=== PATIENT | male | born 1945 | race Caucasian/White ===

== ENCOUNTER 2023-05-15 06:33 | Inpatient (IN) | payer MEDICARE, SELFPAY ==
[2023-05-09 08:17] VITALS: BMI 27.4
[2023-05-15] VITALS (16 sets, daily range): BP systolic 98–139; BP diastolic 54–84; PULSE 90–112; RESP 10–21; TEMP 36.3–37; O2SAT 92–100; BMI 27.4; BMI 26.6
--- NOTE | 2023-05-15 | DI.RAD.S_ITS ---
PROCEDURE: XR LUMBAR SPINE 2-3V INDICATIONS: TLIF L4-5 TECHNIQUE: AP and lateral view of the lumbar spine. COMPARISON: [facility] [place], XR LUMBAR SPINE 2 OR 3 VIEWS, 03/27/2023, 10:20. FINDINGS: Bones: Limited evaluation of the lower lumbar spine. Postsurgical changes from L4-5 posterior spinal fusion and discectomy. The hardware appears intact and in appropriate position. IMPRESSION: Limited views of the lower lumbar spine demonstrate L4-5 posterior spinal fusion and discectomy hardware in expected position. Dictated by: Duane Olvera M.D. on 05/15/2023 at 12:29 Approved by: Duane Olvera M.D. on 05/15/2023 at 12:32
[2023-05-15] MEDS: LACTATED RINGERS 1,000 ML 42 ML IV ×2 (07:56→10:14)
[2023-05-15] MEDS: GABAPENTIN 300 MG CAPSULE PO (08:11)
[2023-05-15] MEDS: ACETAMINOPHEN 325 MG TABLET 975 MG PO (08:11)
--- NOTE | 2023-05-15 08:22 | SUR.OPER ---
Prone on spine table, head in foam head support, padded chest and pelvic supports, gel pad at knees, lower legs supported by pillows; nipples, genitalia and toes free of pressure, arms secured on foam padded arm boards at <90 degrees abduction. Tape over blanket at thigh secured to table.
--- NOTE | 2023-05-15 08:42 | PM.PREOP ---
Pre-operative Note COVID-19 Criteria for continued procedure: Expected advancement of disease process, Possibility delay results in more complex future surgery or treatment, Increased loss of function, Continuing or worsening of significant or severe pain, Deterioration of the patient's condition or overall health and Delay expected to result in less-positive ultimate med/surg outcome Interval Note History & Physical reviewed/Exam performed by Physician: Yes Changes to H&P: No
[2023-05-15] MEDS: CEFAZOLIN 2 GM/100 ML PREMIX 100 ML IV ×2 (09:10→17:39)
[2023-05-15] MEDS: BUPIVACAINE LIPOSOME 266 MG/20 ML VIAL INJ (09:37)
[2023-05-15] MEDS: BUPIVACAINE 0.25% (PF) 60 ML, EPINEPHrine 0.15 MG INJ (09:38)
--- NOTE | 2023-05-15 11:21 | PM.OP.1 ---
Operative Date/Time/Diagnoses Date of procedure: 05/15/23 Time of procedure: 08:55 Pre-op diagnosis: 1. L4-5 spondylolisthesis 2. L4-5 spinal stenosis with neurogenic claudication Post-op diagnosis: same Procedure & Clinicians Procedure: 1. L4-5 Postero-lateral and posterior interbody fusion 2. L4-5 interbody cage placement. 3. L4-5 decompressive laminectomy with bilateral facetecomies 4. L4-5 Posterior non-segmental instrumentation 5. [place] of bone marrow from iliac crest 6. Utilization of microsurgical technique and operating microscope Same procedure as scheduled: Yes Indications: Patient has been having chronic back pain and worsening lumbar radiculopathy and symptoms of neurogenic claudication. Patient failed multiple conservative management with worsening pain weakness and numbness in his lower extremity. Patient has been having difficulty performing activity of daily living. After discussing risks benefits of treatment options, patient elected proceed with surgery. Surgeon: Abimael Romo Family Services Worker: Emerald Mcadams Click Yes if Unassisted: No Anesthesia Type: General Operative Notes Closure Type: primary Specimen(s): none sent Prosthetic devices, grafts, tissues, transplants, or devices: Globus revolve screws, Rise cage Estimated Blood Loss (mL): 50 Procedure in detail: Patient was seen in the preoperative area. Risks and benefits of the surgery was discussed with the patient. Informed consent was obtained from the patient and placed in the chart. Surgical site was marked. Patient was taken to the operative room. General anesthesia was administered. Prophylactic antibiotic was given to the patient less than 30 min before the incision was made. Patient was placed into a prone position on the Surendra table. Patient's back was then prepped and draped in the sterile fashion. Time-out was performed at this time. Using AP and lateral C-arm imaging the interval between L4-5 was identified and marked on patient's back. A 2 inch incision 2 in from midline was made on the left side first. The fascia was incised in line with skin incision. Globus MARS retractors was placed inside the incision and docked onto the L4 lamina. Using microsurgical technique and operating microscope, a L4 laminectomy and L4-5 facetectomy was performed using a Kerrison rongeur. The laminectomy and facetectomy was performed in order to decompress patient's cauda equina as well as the nerve roots exiting at the L4-5 level. The disc space at L4-5 was identified. And a total diskectomy was performed at L4-5 level. The endplates were decorticated using a rasp and shaver. The total diskectomy and decortication was performed at L4-5 level in order to to accomplish a L4-5 fusion. The local bone from the laminectomy and facetectomy was saved for local bone grafting. After the total diskectomy and decortication was completed, Trifecta bone graft material was combined with local bone that was harvested earlier. At this time, a separate skin is incision was made over the iliac crest. A Jamshidi needle was inserted into the iliac crest through a separate skin incision. 5 cc of bone marrow aspiration was obtained through the separate skin incision using a Jamshidi needle from the iliac crest. The bone marrow aspiration was combined with local bone and the Trifecta bone grafting material. The bone grafting material was placed into the L4-5 interbody space along with a expandable cage. The cage was expanded to its maximum height using the torque limiting screwdriver. At this time a mirror image incision was made on the right side. The fascia was incised in line with the skin incision. Globus MARS retractor was inserted and docked onto the L4-5 posterolateral gutter. Using the power drill, posterior-lateral decortication was performed at L4-5 level until bleeding cortical bone was identified. The remaining bone grafting material was placed into the L4-5 posterior lateral gutter he order to accomplish posterolateral fusion at the L4-5 level. Using the double C-arm technique, pedicle screws were placed into the L4-5 pedicles bilaterally. This was done by placing the Jamshidi needle into the pedicles, then placing the guidewires over the Jamshidi needle, and finally placing the cannulated screws over the guidewires bilaterally. After the pedicle screws were placed, 2 titanium rods was locked into the heads of the pedicle screws using locking caps and torque limiting screwdriver. Threaded reducers were used to reduce the patient's spondylolisthesis and maintained using the locking caps bilaterally. After all the hardware was placed, and confirmed with AP and lateral C-arm imaging, the wound was then irrigated with sterile normal saline and packed with Ray-Maryam gauze for 3 min to accomplish hemostasis. After the gauze was removed the deep fascia was closed with #1 Vicryl suture. The subcutaneous layer was closed with 2-0 Vicryl. The skin was closed with skin billy. The Operation could not have been safely performed without compromising the technical result or length of the procedure, without the assistance of a skilled ophthalmology surgical technician. The ophthalmology surgical technician was medically necessary for proper positioning, retraction and manipulation of instruments, proper exposure, surgical preparation, and manipulation of tissue. Patient tolerated the procedure well. There were no complications. Complications: none Post-operative Condition: stable Disposition: PACU Plan for aftercare: Admit to inpatient hospital
--- NOTE | 2023-05-15 11:58 | SUR.PHASEI ---
VVO oxycodone 5mg ordered per Dr. Willoughby.
--- NOTE | 2023-05-15 12:03 | SUR.PHASEI ---
Report called to Ortega.
[2023-05-15] MEDS: OXYCODONE IR 5 MG TABLET PO (12:08)
--- NOTE | 2023-05-15 12:11 | SUR.PHASEI ---
Patient transferred to the floor by Ermias with his belongings bag.
[2023-05-15] MEDS: LACTATED RINGERS 1,000 ML 125 ML IV ×2 (12:50→20:47)
[2023-05-15] MEDS: OXYCODONE IR 10 MG TABLET PO ×2 (14:08→20:47)
[2023-05-15] MEDS: GABAPENTIN 100 MG CAPSULE PO (20:47)
[2023-05-15] MEDS: DOCUSATE 100 MG CAPSULE PO (20:47)
[2023-05-15] MEDS: TAMSULOSIN 0.4 MG CAPSULE PO (20:47)
[2023-05-15] MEDS: SENNOSIDES 8.6 MG TABLET 17.2 MG PO (20:47)
[2023-05-16] MEDS: CEFAZOLIN 2 GM/100 ML PREMIX 100 ML IV (01:40)
[2023-05-16] MEDS: ACETAMINOPHEN 325 MG TABLET 650 MG PO (02:04)
[2023-05-16] MEDS: OXYCODONE IR 10 MG TABLET PO ×4 (02:04→13:52)
[2023-05-16] MEDS: hydrOXYzine pamoate 25 MG CAPSULE PO ×2 (02:04→06:20)
[2023-05-16] MEDS: HYDROMORPHONE 0.5 MG INJ IV ×2 (02:05→06:20)
[2023-05-16 04:40] VITALS: BP 107/57; PULSE 56; RESP 18; TEMP 36.7; O2SAT 99
--- NOTE | 2023-05-16 07:15 | P.DS_ITS ---
History of Present Illness History of Present Illness Date Patient Seen: 05/16/23 Time Patient Seen: 07:16 Chief complaint: TLIF Narrative: Operative Date/Time/Diagnoses Date of procedure: 05/15/23 Time of procedure: 08:55 Pre-op diagnosis: 1. L4-5 spondylolisthesis 2. L4-5 spinal stenosis with neurogenic claudication Post-op diagnosis: same Procedure & Clinicians Procedure: 1. L4-5 Postero-lateral and posterior interbody fusion 2. L4-5 interbody cage placement. 3. L4-5 decompressive laminectomy with bilateral facetecomies 4. L4-5 Posterior non-segmental instrumentation 5. [place] of bone marrow from iliac crest 6. Utilization of microsurgical technique and operating microscope Same procedure as scheduled: Yes Indications: ?Patient has been having chronic back pain and worsening lumbar radiculopathy and symptoms of neurogenic claudication. Patient failed multiple conservative management with worsening pain weakness and numbness in his lower extremity.? Patient has been having difficulty performing activity of daily living.? After discussing risks benefits of treatment options, patient elected proceed with surgery. Surgeon: Abimael Romo Community Service Representative: Emerald Mcadams Click Yes if Unassisted: No Anesthesia Type: General Operative Notes Closure Type: primary Specimen(s): none sent Prosthetic devices, grafts, tissues, transplants, or devices: Globus revolve screws, Rise cage Estimated Blood Loss (mL): 50 Discharge Providers Provider Date of admission: 05/15/23 06:33 Discharge Date: 05/16/23 Consults: 05/15/23 12:14 Consult to Occupational Therapy Evaluate & Treat Comment: Physician Instructions: Evaluate and treat Consult to Physical Therapy Evaluate & Treat Comment: Physician Instructions: Evaluate and Treat Discharge provider: Emerald Mcadams PA-C Summary Hospital Course Discharge Diagnosis: L4-5 spondylolisthesis, L4-5 spinal stenosis with neurogenic claudication; s/p lumbar fusion Hospital Course: Mr White's hospital course was unremarkable. On the morning of POD# 1, he was feeling well. He was eating and voiding without difficulty and wanted to go home if he was able to pass PT. He c/o low back pain and denied leg pain; his pain was well-controlled with oral medication. Exam Vital Signs (past 8 hours): - 05/16/23 04:40 Temperature 98.0 F Pulse Rate 56 L Respiratory Rate 18 Blood Pressure 107/57 L Pulse Oximetry 99 Oxygen Flow Rate 0 Oxygen Delivery Method Room Air Oxygen Flow Rate 0 Narrative Exam Narrative: 03/01 strength in hip flexors, quadriceps, hamstrings, DF, PF, EHL in bilateral lower extremities. Sensation to light touch intact throughout BLE. Calves soft, compressible, nontender and without palpable cords or masses. Dressing placed intraoperatively is CDI. [facility] Medical History (Updated 05/09/23 @ 09:21 by Cleine Weller RN) Diabetes (~2020) HLD (hyperlipidemia) HTN (hypertension) Peripheral neuropathy Prostate cancer (~2017) PTSD (post-traumatic stress disorder) Sciatica Skin cancer Spinal stenosis of lumbar region Surgical History (Updated 05/16/23 @ 07:25 by Emerald Mcadams PA-C) Hx of bilateral cataract extraction Hx of colonoscopy with polypectomy (~03/2023) Hx of knee surgery Social History household members: spouse Smoking Status: Never smoker alcohol intake: current Discharge Assessment & Plan Assessment and Plan Assessment: L4-5 spondylolisthesis, L4-5 spinal stenosis with neurogenic claudication; s/p lumbar fusion Plan of Treatment: Discharge home after PT if PT goals met. Multimodal pain control, f/u in office in 2 weeks as scheduled. Discharge Plan Discharge Plan Patient Disposition: Home Discharge orders & Medications Prescriptions: New oxycodone 5 mg tablet 5 mg PO Q4-6H PRN (Reason: pain, moderate) Qty: 60 0RF docusate sodium 100 mg Capsule 100 mg PO BID PRN (Reason: constipation) Qty: 60 1RF acetaminophen 325 mg Tablet 650 mg PO Q6H PRN (Reason: Fever/Mild Pain (1-3)) Qty: 240 0RF hydroxyzine pamoate 25 mg Capsule 25 mg PO Q4HR PRN (Reason: muscle spasm) Qty: 90 0RF Continued atorvastatin 10 mg Tablet 10 mg PO DAILY aspirin [Aspir-81] 81 mg Tablet,Delayed Release (Dr/Ec) 81 mg PO DAILY gabapentin 100 mg Capsule 100 - 300 mg PO BEDTIME tamsulosin 0.4 mg Capsule 0.4 mg PO BEDTIME lisinopril-hydrochlorothiazide 20-25 mg Tablet 1 tab PO QPM Discontinued hydrocodone-acetaminophen 5-325 mg Tablet 1 tab PO Q4-6H PRN (Reason: Pain) diclofenac sodium 75 mg Tablet,Delayed Release (Dr/Ec) 75 mg PO DAILY Follow up/Referrals: Abimael Romo MD [Physician] - As previously scheduled (Follow up with Dr Romo on 05/28/2023 @ 1:10 pm at [facility] office in [place].) Diet/Activity/Treatments Diet: Diet as Tolerated Activity: No deep bending or twisting at the waist. No lifting more than 10 pounds. Skin/Wound/Dressing Care Report to your healthcare provider any signs of infection, such as:: chills, fever, night sweats, unusual drainage and unusual redness Dressing: May shower; keep dressing as dry as possible. If dressing becomes wet or dirty, may remove and replace with clean, dry gauze. No bathing or otherwise soaking incisions. Do not apply any creams, lotions, or ointments to incisions. Visit Report/Discharge Packet Instructions: DI for Prescription Opioid Use, DI for Transforaminal Lumbar Interbody Fusion Stand Alone Forms: Patient Portal/API, Stroke Signs & Symptoms, Surgery Discharge Quality VTE Deep Vein Thrombosis/Pulmonary Embolism Present on Admission: No
--- NOTE | 2023-05-16 07:39 | PC.NURSE ---
late entry (05/15 @1700) CLINICAL LAB TECHNOLOGIST and I ambulated patient to the chair. pt denied dizziness or light headedness. vitals slightly low but asymptomatic.
[2023-05-16 07:55] VITALS: BP 121/69; PULSE 68; RESP 18; TEMP 36.7; O2SAT 96
--- NOTE | 2023-05-16 08:45 | OT.IP.EVAL ---
Current Diagnoses Spondylolisthesis, lumbar region (05/15/23) Spinal stenosis, lumbar region with neurogenic claudication (05/15/23) Arthrodesis status (05/15/23) Surgery Performed Operation Date: 05/15/23 08:45 Actual Procedures p L4-5 TRANSFORAMINAL INTERBODY FUSION WITH INSTRUMENTATION - Abimael Romo MD Past Medical History (Last Updated 05/09/23 @ 09:21 by Celine Weller RN) Diabetes (~2020) HLD (hyperlipidemia) HTN (hypertension) Peripheral neuropathy Prostate cancer (~2017) PTSD (post-traumatic stress disorder) Sciatica Skin cancer Spinal stenosis of lumbar region Surgical History (Last Updated 05/09/23 @ 09:21 by Celine Weller RN) Hx of bilateral cataract extraction Hx of colonoscopy with polypectomy (~03/2023) Hx of knee surgery Occupational Therapy Inpatient Evaluation/Re-Eval M1 PT/OT-IP Prior Functional Status Start: 05/16/23 10:14 Freq: NEEDED Status: Active Protocol: Document 05/16/23 08:45 [facility] (Rec: 05/16/23 12:24 [facility] [id number]) Medical Review Prior Functional Status Communication Independent Mobility and Gait Pt states needing rest breaks if standing for long periods of time. Activities of Daily Living and IADL's Pt states needing increased time for ADl needs. Social History Household Members spouse Living Arrangements House Number of Stairs To Enter/Railing? 2 steps with no rails Home Environment Standard Height Toilet,Walk in Shower Home Equipment Front Wheel Walker,Straight Cane,Raised Toilet Seat w/ Armrests,Shower Seat without Backrest,Hand Held Shower,Long Handled Sponge,Jewel Hole Driller,Grab Bars In Shower M2 OT-IP Current Condition Start: 05/16/23 10:14 Freq: Status: Active Protocol: Document 05/16/23 08:45 [facility] (Rec: 05/16/23 12:24 [facility] [id number]) Occupational Therapy Current Condition Current Condition Evaluation Date 05/16/23 Treatment Diagnosis S/p L4-5 TLIF Diagnosis Onset Date 05/15/23 Post Operative Precautions Lumbar Precautions Log Roll,No Twisting,Limit Bending,Lifting Restriction of 10 lbs,Gait Belt above Incisional Area M3 OT- IP Subjective and Pain Start: 05/16/23 10:14 Freq: Status: Active Protocol: Document 05/16/23 08:45 [facility] (Rec: 05/16/23 12:24 [facility] [id number]) OT- Subjective Occupational Therapy Visit Type Type Initial Evaluation Visit Start Time 08:45 Visit Stop Time 09:28 Notes 43 Occupational Therapy Visit Comments Patient Comments Pt agreed to get up for OT eval. Patient/Caregiver Goals To go home OT Pain Assessment Pain When Pain Assessed At Rest Pain Present Pain Present Denied Pain M4 OT- IP ADL's Start: 05/16/23 10:14 Freq: Status: Active Protocol: Document 05/16/23 08:45 [facility] (Rec: 05/16/23 12:24 [facility] [id number]) OT ADL-Grooming General Evaluation Grooming Ability Standby Assistance Areas Needing Assistance Retrieving/Set-up of Grooming Items Comments OT Grooming Comments Able to do while standing at the sink. OT ADL-Oral Care General Eval Oral Care Ability Independent Areas of Assistance Retrieving/Set-Up of Items Comments Oral Care Comments While standing with FWW at the sink. OT ADL-Dressing General Eval Areas Needing Assistance Socks Comments OT Dressing Comments Pt states to have his assist for socks/shoes. Educated pt on LB dressing equipment of sock aid and database administration manager. 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 CGA for balance. OT ADL-Bathing Comments OT Bathing Comments NOt performed. Pt states his can assist him at home. M5 OT- IP IADL's Start: 05/16/23 10:14 Freq: Status: Active Protocol: Document 05/16/23 08:45 [facility] (Rec: 05/16/23 12:24 [facility] [id number]) OT-Instrumental Activities of Daily Living Deficits IADL Deficits Identified No Deficits Home Safety Awareness Awareness of Need for Assistance at Home Good Awareness Ability to Problem Solve Emergency Able to Problem Solve Situations Home Safety Comments Pt has a supportive to the be able to assist with his needs at home. Meal Preparation Meal Preparation Caregiver Provides Assist Accounts Clerk Accounts Clerk Caregiver Provides Assist M6 OT- IP Functional Cognition Start: 05/16/23 10:14 Freq: Status: Active Protocol: Document 05/16/23 08:45 [facility] (Rec: 05/16/23 12:24 [facility] [id number]) Cognitive Factors Limiting Selfcare Function Cognitive Ability Level of Alertness Alert Patient Orientation Name,Place,Situation Attention Span Ability Capable of Focused Attention, Capable of Sustained Attention Ability to Follow Commands Able to Follow One Step Commands Cognitive Comments Cognitive Assessment Comments Pt able to follow commands for his back precautions and needing initially vc in order to recall his precautions. OT- Vision and Hearing OT- Hearing Assessment OT- Hearing Assessment WFL OT- Vision Assessment Visual Acuity Glasses For Reading M7 OT- IP Mobility and Balance Start: 05/16/23 10:14 Freq: Status: Active Protocol: Document 05/16/23 08:45 [facility] (Rec: 05/16/23 12:24 [facility] [id number]) OT- Bed Mobility Assessment Supine to Sit Supine to Sit Assist Contact Guard Assistance Sit to Supine Sit to Supine Assist Contact Guard Assistance Scooting Scooting to Edge of Bed Contact Guard Assistance OT-Transfer Assessment Sit to and From Stand Sit to and from Stand Minimal Assistance Transfers Transfer Ability Minimal Assistance Technique Transfer Destination Bed,Chair,Toilet Transfer Technique Stand Step Pivot Devices Transfer Assistive Devices Gait Belt,Front Wheeled Walker Comments Mobility Comments VC to push up from the recliner to stand to FWW. Pt needing occasional KRAIG, especially from lower surfaces to stand. Pt needing from CGA to KRAIG for balance as unsteady on his feet and at times leans to the left with FWW. Prior pt states has difficulty with his balance but able to get by without a device per pt. OT- Balance Assessment Sitting Balance and Reactions Static Sitting Balance Ability Good Dynamic Sitting Balance Ability Good Standing Balance and Reactions Static Standing Balance Ability Fair Dynamic Standing Balance Ability Poor M9 OT- IP Assessment and Plan Start: 05/16/23 10:14 Freq: Status: Active Protocol: Document 05/16/23 08:45 [facility] (Rec: 05/16/23 12:24 [facility] [id number]) OT Summary Assessment and Plan Potential Rehabilitation Potential Good Analytic Complexity at Evaluation Low Summary OT Impairments Pain,Balance,Functional Mobility,Dressing,Toileting, Bathing,Toilet Transfers, Shower Transfers,Activity Tolerance Progress Towards Goals Progressing Toward Goals Assessment Summary Pt low complexity and main barriers are steps, decreased dynaminc balance, and needing assist for mobility and ADL needs. Pt states has a supportive to be able to assist with his needs. Pending progress, pt looking to go home with assist. Goals Grooming Goal Independent Dressing Goal Minimal Assistance Toileting Goal Independent Bathing Goal Standby Assistance Toilet Transfer Goal Independent Shower Transfer Goal Standby Assistance Days to Meet Goals 5 Frequency of Treatment Frequency Of Treatment Once a Day Treatment Plan OT Treatment Plan ADL Training,Functional Mobility,Patient/Family Education,Discharge Planning Discharge Recommendations OT Discharge Recommendations Home with Assistance Transportation Needs at Discharge Private Vehicle
--- NOTE | 2023-05-16 08:50 | CM.DANOTE ---
DCP: Case received, EMR reviewed and met with patient. Introduced self and role. Was able to obtain information regarding patient's baseline activity status prior to his surgery. DCP assessment completed with information currently available. Patient is a 77 year old male who admitted yesterday morning to the care of the orthopedic team. PCP: Dr. Hill. Payer: confirmed: Medicare/[employer]. Patient came to the hospital via private vehicle for a surgical procedure. Patient had L4-5 postero-lateral and posterior interbody fusion. Patient has history of chronic back pain secondary to spinal stenosis. Met with patient in his room. He is alert, sitting up in his bed having his breakfast. Confirmed that he resides in [facility] with his spouse, Cynthia. 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 P: Patient has discharge orders for today, he will work with [employer]. He also has a friend and family staying with him post surgery. Lexi Meyers RN/Seed Corn Production Manager Discharge Planning/Care Management CM Discharge Assessment Start: 05/16/23 08:48 Freq: Status: Active Protocol: Document 05/16/23 08:49 (Rec: 05/16/23 08:50 [id number]) Discharge Planning Assessment Assigned Emergency Room Physician Assistant Lexi Meyers RN/Seed Corn Production Manager Advance Directives? Yes Advance Directives on File No History Provided By Patient,Medical Record Prior Living Arrangements House Household Members spouse Type of transporation used prior to Drives own vehicle admit Independent with ADL's Yes Is patient alert and oriented? Yes Caregiver for Another No Barriers to Discharge No Discharge Plan Home Transportation Arrangement Spouse Referrals Initiated None needed Whiteboard Updated in Patient Room with Yes name and ext. # of Emergency Room Physician Assistant Review Status In Process Next Review Type Continued Stay Review Pre-Anesthesia Assessment Start: 05/09/23 08:17 Freq: Status: Complete Protocol: Document 05/09/23 08:17 CAB (Rec: 05/09/23 09:46 CAB [id number]) Pre-Anesthesia Assessment Preferred Name Cullen or Kota Patient Information Reviewed Via Phone Assessment Assessment Completed With Patient,Spouse Diagnostic Results BMP/CMP,CBC,EKG Comment Outside labs/EKG @ [facility] 05/08/23 Primary Care Provider Yuri Seen Specialist in Last 12 Months Yes Specialist Seen Orthopedist Primary Language Slovak Sales Performance Analyst Required No Height 5 ft 10.5 in Weight 194 lb Body Mass Index (BMI) 27.4 Hearing Ability Normal Visual Assist Magnifying Glass Dentition Type Partial- Lower,Full- Lower Barriers to Learning Visual Hx Anesthesia Reactions No Hx Family Anesthesia Reaction No Hx Malignant Hyperthermia No Hx Blood Transfusions No Anesthesia Review Requested No Access Clinician No alcohol intake current alcohol intake frequency 0-2 drinks per day Smoking Status Never smoker Substance Use Type marijuana Comment Pt advised not to smoke marijuana 24 hours prior Pain Present Pain Reported Musculoskeletal Symptoms Abnormal Gait,Difficulty Walking,Joint Pain,Numbness, Radiating Pain into Limb, Tingling History of Falling (Recent or History of Yes ) Patient is completely paralyzed or No completely immobile Mental Status Oriented to own ability Is patient on oxygen? No Does patient have DOTY/SOB No Hx Sleep Apnea No Currently Taking a Beta [place] No Hx Chest Pain No Hx SOB No Hx Syncope or Dizziness No Anti-Coagulant Therapy No Has a [employer] Consultant No Cardiac Testing No Hx Pacemaker/ICD No Pacemaker Rep Required? No Cardiac Clearance Received Not Applicable Diet Type At Home Ketogenic,Low Carb Dysphagia No Gastrointestinal Symptoms Constipation Genitourinary Symptoms Dribbling Urinary Catheter Present No Hx Urinary Self Catheterization No Diabetes Yes: Checks blood sugar once daily, controlled with diet, exercise HgbA1C 5.3 Date 11/22/22 Comment Per patient Hx Drug Resistant Organism No Presence of External or Internal Medical Yes: Bilat eye IOLs, left knee Devices Have you had any close contact with No someone diagnosed with COVID-19? Received a COVID vaccine? Yes Received all doses? Yes Marital Status Lives With spouse Current Living Arrangements House Support System Child/Children,Friend(s), Spouse Comment Friend and daughter will be assisting with care Does the Patient Have Assistance After Yes Surgery Patient Discharge Plan Description Return Home Comment Pt advised overnight length of stay per surgeon Feels Safe in Current Environment Yes Been Physically Hurt or Threatened By a No Person in Current Environment Do you have thoughts of harming yourself None or others? Are you currently considering suicide? No Do you have a plan to hurt yourself or No Plan others? Do You Have Any Spiritual Beliefs That No May Affect Your HC Choices? Do You Have Any Cultural Practices That No May Affect Your HC Choices? Who Can We Speak to About Patient's Care Family, friends Identifying Code for Release of Patient Declines to issue Information Health Care Proxy/Next of Kin Cynthia () Health Care Proxy Emergency Contact Name Cynthia () Emergency Contact Advance Directives? Yes Advance Directives on File No Requested Patient Bring Advanced Yes Directives DOS Power of Administration Assistant Yes Power of Administration Assistant Name Cynthia () Power of Administration Assistant PAC Instructions Diabetes instructions,Durable medical equipment,Medications to take/avoid,Nasal antibiotic ,No ETOH/petroleum product on skin DOS,NPO,Post-op transportation,Pre-surgical wash,Sensory aids,Sturdy shoes /comfortable clothes,Do not bring valuables and remove jewelry
[2023-05-16] MEDS: DOCUSATE 100 MG CAPSULE PO (09:58)
[2023-05-16] MEDS: ATORVASTATIN 20 MG TABLET 10 MG PO (09:58)
--- NOTE | 2023-05-16 10:27 | PT.IIE ---
Current Diagnoses Spondylolisthesis, lumbar region (05/15/23) Spinal stenosis, lumbar region with neurogenic claudication (05/15/23) Arthrodesis status (05/15/23) Surgery Performed Operation Date: 05/15/23 08:45 Actual Procedures p L4-5 TRANSFORAMINAL INTERBODY FUSION WITH INSTRUMENTATION - Abimael Romo MD Surgical History (Last Updated 05/09/23 @ 09:21 by Celine Weller, RN) Hx of bilateral cataract extraction Hx of colonoscopy with polypectomy (~03/2023) Hx of knee surgery Medical History (Last Updated 05/09/23 @ 09:21 by Celine Weller RN) Diabetes (~2020) HLD (hyperlipidemia) HTN (hypertension) Peripheral neuropathy Prostate cancer (~2017) PTSD (post-traumatic stress disorder) Sciatica Skin cancer Spinal stenosis of lumbar region Physical Therapy Inpatient Evaluation/Re-Eval M1 PT/OT-IP Prior Functional Status Start: 05/16/23 12:50 Freq: NEEDED Status: Active Protocol: Document 05/16/23 10:27 AB (Rec: 05/16/23 13:10 AB [email or web address]) Medical Review Prior Functional Status Medical History Reviewed Yes Communication able to make needs known Mobility and Gait pt stated that he is modified independent with all mobilities and ambulation without AD Social History Household Members spouse Living Arrangements House Number of Floors (Floors) One Floor Number of Stairs To Enter/Railing? 2 steps without rails to enter the house Home Environment Standard Height Toilet,Walk in Shower Home Equipment Front Wheel Walker,Straight Cane,Raised Toilet Seat w/ Armrests,Shower Seat without Backrest,Hand Held Shower,Grab Bars In Shower Additional Social History Comment pt has an adjustable bed without rails pt staed that her daughter and another friend are staying with him to assist him as well M2 PT-IP Current Condition Start: 05/16/23 12:50 Freq: NEEDED Status: Active Protocol: Document 05/16/23 10:27 AB (Rec: 05/16/23 13:10 AB [email or web address]) Physical Therapy Current Condition Current Condition Evaluation Date 05/16/23 Treatment Diagnosis s/p L4-5 TLIF; difficulty in walking Onset Date 05/15/23 M3 PT-IP Subjective Start: 05/16/23 12:50 Freq: NEEDED Status: Active Protocol: Document 05/16/23 10:27 AB (Rec: 05/16/23 13:10 AB [email or web address]) Subjective Physical Therapy Visit Type Type Initial Evaluation Visit Start Time 10:27 Visit Stop Time 11:15 Total Visit Minutes 48 Number of RESISTOR TESTING MACHINE OPERATOR Visits 0 Physical Therapy Visit Comments Patient Comments agreeable to do PT Therapy Pain Assessment Pain When Pain Assessed At Rest Pain Present Pain Present Pain Reported Location Back Intensity 5 Scale Used Numeric (0 - 10) Pain Management Techniques Distraction,Modification of Treatment,Re-positioning, Timing of Activity with Medications M4 PT-IP Mobility and Gait Start: 05/16/23 12:50 Freq: NEEDED Status: Active Protocol: Document 05/16/23 10:27 AB (Rec: 05/16/23 13:10 AB [id number]) PT-Bed Mobility Assessment Rolling Type of Rolling Log Rolling Level of Assist Standby Assistance Supine to Sit Supine to Sit Standby Assistance Sit to Supine Sit to Supine Standby Assistance PT-Transfer Assessment Sit to and From Stand Sit to and from Stand Minimal Assistance,1 Person Assistance,Use of Upper Extremities Equipment Transfer Assistive Device Gait Belt,Front Wheeled Walker Orthotic/Prosthetic Devices or Brace: No Transfers Transfer Destination Bed,Chair Transfer Technique ambulated Transfer Ability Level of Assist Minimal Assistance,1 Person Assistance,Use of Upper Extremities Comments Mobility Comments pt agreeable to do PT. pt denies numbness or tingling on BLE. educated on back precautions and log roll bed mobility. pt completed log roll supine <> sit SBA. cued provided. pt completed again but continues to require cues for techniques and safety. pt completed sit to stand mod A and max cues. pt has decrease standing balance with UE transition on FWW requiring mod to max A for steadiness and safety with standing balance. pt ambulated in room using FWW 30 ft min A. L knee slight buckling and cued for quads contractions. pt also tends to drag RLE and seems to present with a foot drop but has DF strength during MMT. cued pt to have heel strike during initial stance and pt stated that he cannot feel his R foot and is chronic but pt pt denied numbness when asked when eval first started. pt sat on the chair. completed sit<>stand from the chair x 3 reps min A and max cues. agreed to do stairs. educated on stair climbing. ambulated from chair to platform step using FWW min A. attempted up/down platform step using SPC but pt unable to complete with L knee buckling requiring max A to recover. FWW placed in front on pt for support. attempted up/down step again using SPC + EMPLOYEE RELATION MANAGER max A and max cues. pt ambulated back to the room using FWW min to mod A and cues. requested to go back to bed. completed sit to supine SBA and cues for techniques. positioned pt on the bed. call light and table placed within reach. Gait Assessment Gait Gait Assistance Required: Minimum Assistance,Moderate Assistance,1 Person Assist Distance (Feet) 30 Able to Maintain Weight Bearing Status Yes During Gait Assistive Devices Assistive Device Gait Belt,Front Wheeled Walker Orthotic/Prosthetic Devices or Brace: No Gait Deviations General Gait Pattern Antalgic,Decreased Stride Length,Decreased Feet Clearance,Narrow Based Gait Factors Limiting Gait Function Factors Limiting Gait Function Decreased Activity Tolerance, Decreased Sensation,Decreased Strength,Difficulty Following Directions,Limited Range of Motion,Pain,Poor Balance,Poor Safety Awareness Stair Climbing Assessment Evaluation Level of Assist On Stairs Maximal Assistance,1 Person Assistance Devices Stair Climbing Assistive Devices Straight Cane Technique/Endurance Stair Climbing Direction Ascend and Descend Stair Climbing Technique Step to Step Number of Steps Climbed 1 Query Text: Stair Climbing Set # Repetitions (reps) 1 Comments Stair Climbing Comments pls refer to mobility section for details PT-Balance Assessment Sitting Balance and Reactions Static Sitting Balance Ability Good Dynamic Sitting Balance Ability Good Standing Balance and Reactions Static Standing Balance Ability Fair Dynamic Standing Balance Ability Fair Device Used FWW M5 PT-IP Objective Assessments Start: 05/16/23 12:50 Freq: NEEDED Status: Active Protocol: Document 05/16/23 10:27 AB (Rec: 05/16/23 13:10 [email or web address]) Orientation Orientation/Cognition Level of Alertness Alert Orientation Name,Place,Situation Language Function Ability No Deficits Noted Safety Awareness Decreased Safety Awareness Memory Description Short Term Impaired Gross Range of Motion Lower Extremity ROM Assessment Within Functional Limits Strength Lower Extremity Strength Assessment Left Impaired Muscle Tone Muscle Tone WNL Yes M6 PT-IP Treatment Start: 05/16/23 12:50 Freq: NEEDED Status: Active Protocol: Document 05/16/23 10:27 AB (Rec: [facility]/16/23 [facility] Treatment Education Education Provided Precautions,Weight Bearing Status,Safety M7 PT-IP Assessment and Plan Start: 05/16/23 12:50 Freq: NEEDED Status: Active Protocol: Document 05/16/23 10:27 AB (Rec: 05/16/23 13:10 AB [id number]) PT Summary Assessment and Plan Potential Rehabilitation Potential Fair Status of Condition at Evaluation Evolving Summary Impairments Pain,ROM,Strength,Balance, Coordination,Sensation,Tone, Cognition,Bed Mobility, Transfers,Gait,Activity Tolerance Assessment Summary pt s/p L4-5 TLIF POD1. pt requiring min to mod A with ambulation and max cues for techniques and safety. pt requiring max A for stair climbing and has (+) L knee buckling during first attempt. caregiver training set up this afternoon at 130pm and will continue to assess progress. pt was not ready to d/c home this morning and will continue to assess after caregiver training. Goals Bed Mobility Goal Independent Transfer Goal Independent,Front Wheeled Walker Gait Goal Independent,Front Wheel Walker Gait Distance 200 Other Goals up/down 2 steps using SPC + EMPLOYEE RELATION MANAGER min A Days to Meet Goals 10 Frequency of Treatment Frequency Of Treatment Twice a Day Treatment Plan Physical Therapy Treatment Plan Bed Mobility Training,Transfer Training,Gait Training, Therapeutic Exercise,Balance Retraining,Post Op Education, Discharge Planning,Hot or Cold Pack,Neuromuscular Re-ed, Coordination Retraining,Manual Therapy Precautions Lumbar Precautions Log Roll,No Twisting,Limit Bending,Lifting Restriction of 10 lbs,Gait Belt above Incisional Area Recommendations To Nursing Amount of Assist Needed 1 Person Assist Discharge Recommendations PT Discharge Recommendations Home with 24/7 Assist Available,Home Health Transportation Needs at Discharge Private Vehicle,Wheelchair/ Cabulance
--- NOTE | 2023-05-16 12:41 | PC.NURSE ---
Assess- Dressing to lower back is cdi, patient had some trouble with doing stairs with physical therapy. At 1330 he will have some career resource specialist training with his relatives/friends who will help him when he goes home. Ambulating with cane and walker and given pain medication for 7/10 pain to back. Eating well at meals and blood sugar 129.
--- NOTE | 2023-05-16 15:06 | PT.IPTN ---
Current Diagnoses Spondylolisthesis, lumbar region (05/15/23) Spinal stenosis, lumbar region with neurogenic claudication (05/15/23) Arthrodesis status (05/15/23) Surgery Performed Operation Date: 05/15/23 08:45 Actual Procedures p L4-5 TRANSFORAMINAL INTERBODY FUSION WITH INSTRUMENTATION - Abimael Romo MD Physical Therapy Treatment Note M2 PT-IP Current Condition Start: 05/16/23 12:50 Freq: NEEDED Status: Active Protocol: Document 05/16/23 10:27 AB (Rec: 05/16/23 13:10 AB [email or web address]) Physical Therapy Current Condition Current Condition Evaluation Date 05/16/23 Treatment Diagnosis s/p L4-5 TLIF; difficulty in walking Onset Date 05/15/23 M3 PT-IP Subjective Start: 05/16/23 12:50 Freq: NEEDED Status: Active Protocol: Document 05/16/23 13:30 AB (Rec: 05/16/23 15:06 AB [email or web address]) Subjective Physical Therapy Visit Type Type Treatment Note Visit Start Time 13:30 Visit Stop Time 14:22 Total Visit Minutes 52 Number of CITY MANAGER Visits 0 Physical Therapy Visit Comments Patient Comments agreeable to do PT M4 PT-IP Mobility and Gait Start: 05/16/23 12:50 Freq: NEEDED Status: Active Protocol: Document 05/16/23 13:30 AB (Rec: 05/16/23 15:06 AB [email or web address]) PT-Bed Mobility Assessment Rolling Level of Assist Standby Assistance Supine to Sit Supine to Sit Standby Assistance Sit to Supine Sit to Supine Standby Assistance PT-Transfer Assessment Sit to and From Stand Sit to and from Stand Contact Guard Assistance, Minimal Assistance,Moderate Assistance,1 Person Assistance ,Use of Upper Extremities Equipment Transfer Assistive Device Gait Belt,Front Wheeled Walker Orthotic/Prosthetic Devices or Brace: No Transfers Transfer Destination Chair Transfer Technique ambulated Transfer Ability Level of Assist Contact Guard Assistance, Minimal Assistance,1 Person Assistance,Use of Upper Extremities Comments Mobility Comments spouse and friend in room for caregiver training. the main person assisting pt at home is his spouse. educated spouse regarding pt's back precautions and log roll bed mobiltiy. pt completed log roll supine <>sit SBA and cues . educated spouse on how to cue pt. pt repeated bed mobiility again with spouse providing cued. educated spouse on how to use safety belt and how to assist pt. spouse was able to put safety belt on. assisted pt with sit to stand CGA and cues and ambulated pt in room ~ 20ft using fWW CGA. educated spouse on how to assist pt and cue pt when needed. educated spouse and friend regarding stair climbing technique using SPC and ROUGH AND TRUING MACHINE OPERATOR. spouse assisted pt wit sit to stand min to mod A and pt with unsteady transition. educated pt on assisting and cueing pt if needed. pt ambulated towards the platform step using FWW CGA with spouse assisting. pt completed up/down platform step using SPC ROUGH AND TRUING MACHINE OPERATOR, PT has to step in to assist pt as pt was unable to provide appropriate assistance to pt with pt having (+) L knee buckling. spouse then stated that she has hip problems. pt's friend stated that she will be able to assist pt. educated friend on how to assist pt and completed up/down platform step using SPC and ROUGH AND TRUING MACHINE OPERATOR max A and max cues. pt's friend was able to assist pt. pt ambulated back to his room using FWW CGA to min A and sat on the chair. positioned on the chair. call light and table placed within reach. Gait Assessment Gait Gait Assistance Required: Contact Guard Assist,Minimum Assistance Distance (Feet) 20 Able to Maintain Weight Bearing Status Yes During Gait Assistive Devices Assistive Device Gait Belt,Front Wheeled Walker Orthotic/Prosthetic Devices or Brace: No Gait Deviations General Gait Pattern Decreased Stride Length, Decreased Feet Clearance, Narrow Based Gait Factors Limiting Gait Function Factors Limiting Gait Function Decreased Activity Tolerance, Decreased Strength,Difficulty Following Directions,Limited Range of Motion,Pain,Poor Balance,Poor Safety Awareness Stair Climbing Assessment Evaluation Level of Assist On Stairs Maximal Assistance,1 Person Assistance Devices Stair Climbing Assistive Devices Straight Cane Technique/Endurance Stair Climbing Direction Ascend and Descend Stair Climbing Technique Step to Step Number of Steps Climbed 1 Stair Climbing Set # Repetitions (reps) 3 Comments Stair Climbing Comments pls refer to mobility section for details M5 PT-IP Objective Assessments Start: 05/16/23 12:50 Freq: NEEDED Status: Active Protocol: Document 05/16/23 10:27 AB (Rec: 05/16/23 13:10 AB [email or web address]) Orientation Orientation/Cognition Level of Alertness Alert Orientation Name,Place,Situation Language Function Ability No Deficits Noted Safety Awareness Decreased Safety Awareness Memory Description Short Term Impaired Gross Range of Motion Lower Extremity ROM Assessment Within Functional Limits Strength Lower Extremity Strength Assessment Left Impaired Muscle Tone Muscle Tone WNL Yes M6 PT-IP Treatment Start: 05/16/23 12:50 Freq: NEEDED Status: Active Protocol: Document 05/16/23 13:30 AB (Rec: 05/16/23 15:06 AB [email or web address]) Physical Therapy Treatment Education Education Provided Safety M7 PT-IP Assessment and Plan Start: 05/16/23 12:50 Freq: NEEDED Status: Active Protocol: Document 05/16/23 13:30 AB (Rec: 05/16/23 15:06 AB [email or web address]) PT Summary Assessment and Plan Potential Rehabilitation Potential Fair Summary Impairments Pain,ROM,Strength,Balance, Coordination,Sensation,Tone, Cognition,Bed Mobility, Transfers,Gait,Activity Tolerance Progress Towards Goals Slow Progress due to Activity Tolerance,Slow Progress - Other Assessment Summary caregiver training conducted. spouse was able to assist pt with bed mobility, transfers and ambulation using FWW but unable to assist with stair climbing. pt's friend present and was able to assist pt with stair climbing. pt plans to go home and will need assistance at home and will also benefit from HHPT. Goals Bed Mobility Goal Independent Transfer Goal Independent,Front Wheeled Walker Gait Goal Independent,Front Wheel Walker Gait Distance 200 Other Goals up/down 2 steps using SPC + ROUGH AND TRUING MACHINE OPERATOR min A Days to Meet Goals 10 Frequency of Treatment Frequency Of Treatment Twice a Day Treatment Plan Physical Therapy Treatment Plan Bed Mobility Training,Transfer Training,Gait Training, Therapeutic Exercise,Balance Retraining,Post Op Education, Discharge Planning,Hot or Cold Pack,Neuromuscular Re-ed, Coordination Retraining,Manual Therapy Precautions Lumbar Precautions Log Roll,No Twisting,Limit Bending,Lifting Restriction of 10 lbs,Gait Belt above Incisional Area Recommendations To Nursing Amount of Assist Needed 1 Person Assist Discharge Recommendations PT Discharge Recommendations Home with 20/05 Assist Available,Home Health Transportation Needs at Discharge Private Vehicle,Wheelchair/ Cabulance
== END 2023-05-16 15:00 | disposition home or self-care (01) | DRG 455 ==
PROVIDERS: Admitting Provider Orthopaedic Surgery Orthopaedic Surgery of the Spine; Referring Provider Physical Medicine & Rehabilitation; Visit Provider Orthopaedic Surgery Orthopaedic Surgery of the Spine
DX: M43.16 Spondylolisthesis, lumbar region (principal); M48.062 Spinal stenosis, lumbar region with neurogenic claudication; I10 Essential (primary) hypertension; E78.5 Hyperlipidemia, unspecified; Z85.46 Personal history of malignant neoplasm of prostate
CPT/HCPCS: 36415; 72100; 76000; 82962; 97162; 97165; 97530; 97535; C1713; C1831; C9290; J0171; J0330; J0690; J1100; J1170; J2250; J2405; J2704; J3010